=== PATIENT | male | born 1995 | race Caucasian/White ===

== ENCOUNTER 2017-05-13 16:01 | Inpatient (IN) | payer OTHER ==
--- NOTE | ~2017-05-13 | PN ---
Unit #: [id number] #: [id number] Patient: BOOM LAZARO [id number] [facility] [address] [place] [address] [id number] I MR#: [id number] NAME: BOOM LAZARO. ROOM: P121 Age: 22 Sex: M Admission Date: 05/13/2017 : 1995 Attending Physician: Cj Manriquez M.D. Admitting Physician: Cj Manriquez M.D. Primary Care Physician: Anita Brunson PROGRESS NOTES DATE OF SERVICE: 05/19/2017 SUBJECTIVE Mr. Parsons is a 22-year-old white male with mood disorder, who was seen today and chart was reviewed and case was discussed with the staff. He has been anxious, withdrawn, and rather seclusive to himself. Meanwhile, he has been cooperative with treatment recommendations and has been taking the medications and tolerating them fairly well with no reported side effects. MENTAL STATUS EXAMINATION Young white male who was casually dressed with fair personal hygiene, appears to be in no acute distress or discomfort. He was awake and alert on interaction with intact orientation. His mood was anxious with a congruent affect. He denies any suicidal or homicidal ideation. His insight and judgment remain slightly impaired. TREATMENT PLAN 1. We will continue on his current treatment protocol. We will monitor his response and make further adjustments as needed. 2. We will continue to follow up. Dictated by... Anita Allen/mohit TD: 05/20/2017 02:02 JOB #: [id number] EDIE PROGRESS NOTES Page 1 of 1 X Cj Manriquez MD X PROGRESS NOTE
--- NOTE | ~2017-05-13 | PN ---
Unit #: [id number] #: [id number] Patient: BOOM MACKEY [id number] [facility] [address] [place] [address] [id number] I MR#: [id number] NAME: BOOM MACKEY. ROOM: P121 Age: 22 Sex: M Admission Date: 05/13/2017 : 1995 Attending Physician: Cj Manriquez M.D. Admitting Physician: Cj Manriquez M.D. Primary Care Physician: Anita Brunson PROGRESS NOTES DATE 05/18/2017 DISCUSSION Mr. Mackey is a 22-year-old, white male who was seen today and chart was reviewed and case was discussed with the staff. He has been anxious, withdrawn and rather seclusive to himself. Meanwhile, he has been cooperative with treatment recommendations. He has been taking medications and tolerating them fairly well with no reported side effects. MENTAL STATUS EXAM Young white male who was casually dressed with fair personal hygiene, appears to be in no acute distress or discomfort. He was awake and alert on interaction with intact orientation. His mood was anxious with congruent affect. His speech was slow and goal directed. He denies any suicidal or homicidal ideation. Also, denies any auditory or visual hallucinations. His insight and judgement remains slightly impaired. TREATMENT PLAN 1. We will continue him on his current medications and treatment protocol. We will monitor his response to the medication and make further adjustments as needed. 2. We will continue to follow up. Dictated by... Anita Allen/avtar TD: 05/19/2017 04:12 JOB #: [id number] Unit #: [id number] #: [id number] Patient: BOOM MACKEY PROGRESS NOTES Page 1 of 1 X Cj Manriquez MD PROGRESS NOTE
--- NOTE | ~2017-05-13 | PN ---
Unit #: [id number] #: [id number] Patient: BOOM MACKEY [id number] [facility] [address] [place] [address] [id number] I MR#: [id number] NAME: BOOM MACKEY. ROOM: P121 Age: 22 Sex: M Admission Date: 05/13/2017 : 1995 Attending Physician: Cj Manriquez M.D. Admitting Physician: Cj Manriquez M.D. Primary Care Physician: Anita Brunson PROGRESS NOTES DATE 05/16/2017 DISCUSSION Mr. Mackey is a 22-year-old, white male who was seen today and chart was reviewed and case was discussed with the staff. He has been anxious, withdrawn and rather seclusive to himself. Meanwhile, he has been cooperative with the treatment recommendations. He has been taking the medication and tolerating them fairly well with no reported side effects. MENTAL STATUS EXAM Young white male who was casually dressed with fair personal hygiene, appears to be in no acute distress or discomfort. He was awake and alert on interaction with intact orientation. His mood was anxious with congruent affect. He denies any suicidal or homicidal ideation. His insight and judgement remains slightly impaired. TREATMENT PLAN 1. We will continue him on his current medications and treatment protocol. We will monitor his response and make further adjustments as needed. 2. We will continue to follow up. Dictated by... Anita Allen/avtar TD: 05/17/2017 03:05 JOB #: [id number] Unit #: [id number] #: [id number] Patient: BOOM MACKEY PROGRESS NOTES Page 1 of 1 X Cj Manriquez MD X PROGRESS NOTE
--- NOTE | ~2017-05-13 | DS ---
Unit #: [id number] #: [id number] [facility] [id number] [facility] [address] [place] [address] [id number] I MR#: [id number] NAME: BOOM MACKEY. ROOM: [facility] Age: 22 Sex: M Admission Date: 05/13/2017 : 1995 Discharge Date: 05/21/2017 Attending Physician: Cj Manriquez M.D. Primary Care Physician: Mya Mcmahon M.D. DISCHARGE SUMMARY IDENTIFYING DATA Mr. Mackey is a 22-year-old white male with history mood disorder, who was self referred to the hospital. DISCHARGE DIAGNOSES Psychiatric: Bipolar disorder, most recent episode depressed, recurrent, moderate, without psychotic features. Medical: None. Stressors: Moderate psychosocial stressors. HISTORY OF PRESENT ILLNESS Please see initial psychiatric evaluation for details. PAST PSYCHIATRIC HISTORY Please see initial psychiatric evaluation for details. PAST MEDICAL HISTORY Please see initial psychiatric evaluation for details. HOSPITAL COURSE The patient was admitted to the adult psychiatric unit at [facility] and was oriented to the hospital environment. Routine p.r.n. medications were initiated and he was started back on his home medications and medications were adjusted and was closely monitored. He was taking the medications regularly and was tolerating them fairly well and was able to show a decent therapeutic response with improvement in depression and anxiety and as such, it was decided that he will be kept on him current medications and will be discharged home and will continue treatment on an outpatient basis. DISCHARGE CONDITION Stable. PROGNOSIS Fair. Dictated by... Anita Allen/mohit TD: 06/24/2017 07:15 Unit #: [id number] #: [id number] Patient: BOOM MACKEY JOB #: [id number] DISCHARGE SUMMARY Page 1 of 1 X Cj Manriquez MD X DISCHARGE SUMMARY
--- NOTE | ~2017-05-13 | PN ---
Unit #: [id number] #: [id number] Patient: BOOM MACKEY [id number] [facility] [address] [place] [address] [id number] I MR#: [id number] NAME: BOOM MACKEY. ROOM: P121 Age: 22 Sex: M Admission Date: 05/13/2017 : 1995 Attending Physician: Cj Manriquez M.D. Admitting Physician: Cj Manriquez M.D. Primary Care Physician: Anita Brunson PROGRESS NOTES DATE 05/20/2017 DISCUSSION Mr. Mackey is a 22-year-old white male who was seen today and chart was reviewed and case was discussed with the staff. He has been anxious, withdrawn and rather seclusive to himself. Meanwhile, he has been cooperative with treatment recommendations and has been taking medications and tolerating them fairly well with no reported side effects. MENTAL STATUS EXAMINATION Young white male who was casually dressed with fair personal hygiene and appears to be in no acute distress or discomfort. He was awake and alert on interaction with intact orientation. His mood was anxious with congruent affect. His speech is slow and goal-directed. He denies any suicidal or homicidal ideation. His insight and judgement remains slightly impaired. TREATMENT PLAN 1. Will continue on his current medications and treatment protocol. Will monitor his response and make further adjustments as needed. 2. Will continue to follow up. Dictated by... Anita Allen/michael TD: 05/20/2017 17:17 JOB #: [id number] Unit #: [id number] #: [id number] Patient: BOOM MACKEY PROGRESS NOTES Page 1 of 1 X Cj Manriquez MD X PROGRESS NOTE
--- NOTE | ~2017-05-13 | PN ---
Unit #: [id number] #: [id number] Patient: BOOM LAZARO [id number] [facility] [address] [place] [address] [id number] MR#: [id number] NAME: BOOM LAZARO. ROOM: P121 Age: 22 Sex: M Admission Date: 05/13/2017 : 1995 Attending Physician: Cj Manriquez M.D. Admitting Physician: Cj Manriquez M.D. Primary Care Physician: Mya Mcmahon M.D. PEANADJA PROGRESS NOTES DATE OF SERVICE 05/17/2017 DISCUSSION Ms. Lazaro is a 22-year-old white male who was seen today. Chart was reviewed and case was discussed with the staff. He has been anxious, withdrawn, depressed, and rather seclusive to himself. Meanwhile, he has been cooperative with treatment recommendations and has been taking the medications and tolerating them fairly well with no reported side effects. MENTAL STATUS EXAMINATION Young white male who is casually dressed with fair personal hygiene, appears to be in no acute distress or discomfort. He was awake and alert on interaction with intact orientation. His mood is anxious with congruent affect. He denies any suicidal or homicidal ideations. His insight and judgment remain slightly impaired. TREATMENT PLAN 1. We will continue him on his current medications and treatment protocol. We will monitor his response to the medications and make further adjustments as needed. 2. We will continue to follow up. Dictated by... jC Manriquez M.D. IAA/bzg TD: 05/18/2017 10:18 JOB #: [id number] PEANADJA PROGRESS NOTES Page 1 of 1 X Cj Manriquez MD X PROGRESS NOTE
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
--- NOTE | ~2017-05-13 | PN ---
Unit #: [id number] #: [id number] Patient: BOOM MACKEY [id number] [facility] [address] [place] [address] [id number] I MR#: [id number] NAME: BOOM MACKEY. ROOM: P121 Age: 22 Sex: M Admission Date: 05/13/2017 : 1995 Attending Physician: Cj Manriquez M.D. Admitting Physician: Cj Manriquez M.D. Primary Care Physician: Anita Brunson PROGRESS NOTES DATE May 14, 2017 DISCUSSION Mr. Mackey is a 22-year-old white male, with mood disorder, who was seen today and chart was reviewed and the case was discussed with the staff. He was seen to be anxious, withdrawn, depressed, and rather seclusive to himself with blunted affect and minimal interaction expressing significant depressive symptoms. Meanwhile, he has been taking the medications and tolerating them fairly well with no reported side effects. MENTAL STATUS EXAMINATION Young white male, who was casually dressed with fair personal hygiene and appears to be in no acute distress or discomfort. He was awake and alert on interaction with intact orientation. His mood is anxious with a congruent affect. His speech is slow and goal-directed. He denies any suicidal or homicidal ideations. His insight and judgment remain slightly impaired. TREATMENT PLAN 1. We will continue him on his current medications and we will recommend initiating antidepressant therapy. 2. We will continue to followup. Dictated by... Anita Allen/reggie TD: 05/14/2017 09:55 JOB #: [id number] Unit #: [id number] #: [id number] Patient: BOOM MACKEY PROGRESS NOTES Page 1 of 1 X Cj Manriquez MD PROGRESS NOTE
--- NOTE | ~2017-05-13 | HP ---
Unit #: [id number] #: [id number] Patient: BOOM LAZARO [id number] [place] [address] [id number] I MR#: [id number] NAME: BOOM LAZARO. ROOM: P121 Age: 22 Sex: M Admission Date: 05/13/2017 : 1995 Attending Physician: Cj Manriquez M.D. Admitting Physician: Cj Manriquez M.D. Primary Care Physician: Mya Mcmahon M.D. HISTORY AND PHYSICAL HISTORY OF PRESENT ILLNESS Boom is a 22 year old admitted to [address] [place] [address] with depression verbalizing wanting to hurt himself. PAST MEDICAL HISTORY Nothing significant. PAST SURGICAL HISTORY Nothing reported. ALLERGIES No known drug allergies. SOCIAL HISTORY Smokes 1 pack per day. Drinks alcohol rarely. Admits to using marijuana frequently. FAMILY HISTORY Medically noncontributory. REVIEW OF SYSTEMS CONSTITUTIONAL: No fever or chills. HEENT: Denies any sore throat, ear pain or runny nose. CARDIOVASCULAR: Denies chest pain, irregular heart rhythm or palpitations. CHEST: Denies shortness of breath or cough. No hemoptysis. GASTROINTESTINAL: Denies nausea, vomiting, diarrhea or chronic constipation. ENDOCRINE: Denies history of increased thirst or urination. No recent significant weight loss or gain. GENITOURINARY: Denies dysuria, frequency, or hematuria. SKIN: Denies any rashes. HEMATOLOGIC: Denies history of increased bleeding or bruising. MUSCULOSKELETAL: Denies any hot, swollen joints. No generalized muscle pain. NEUROLOGIC: Denies problems with vision or speech. No frequent, severe headaches. No numbness, tingling or weakness in any extremities. Denies loss of bladder or bowel control. CURRENT MEDICATIONS 1. Celexa 20 mg daily. 2. Desyrel 100 mg q.h.s. p.r.n. 3. Milk of Magnesia p.r.n. 4. Maalox p.r.n. Unit #: [id number] #: [id number] Patient: BOOM LAZARO 5. Tylenol p.r.n. 6. Nicotine patch 14 mg daily. PHYSICAL EXAMINATION GENERAL: Alert, well-nourished, in no apparent distress. VITAL SIGNS: Blood pressure 124/66, heart rate 80, respirations 16, temperature 98.6. WEIGHT: 190. HEIGHT: 5 feet 11 inches. SKIN: Warm and dry without rash or lesion. HEENT: Normocephalic. TMs not viewed. Oral and nasal passages clear. Conjunctivae clear. PERRLA. EOMs intact. NECK: Supple without lymphadenopathy or thyromegaly. HEART: Regular rate and rhythm without murmur. LUNGS: Clear. ABDOMEN: Soft, nontender. : Not done. EXTREMITIES: No evidence of cyanosis, clubbing or edema. Moves all without focal deficit. NEUROLOGICAL: Grossly within normal limits. Cranial Nerves: II: Visual banuelos are intact. III, IV AND : Extraocular movements are intact. Pupils are equal, round and reactive to light. V: Facial sensation is grossly normal. VII: Facial movements and expression are normal. VIII: Auditory acuity grossly intact. IX, X: Uvula is midline. Phonation is normal. XI: Patient shrugs shoulders and turns head normally. XII: Tongue protrudes in the midline. Sensory and Motor Function: Sensory and motor sensation is grossly normal. Motor: moves all extremities well. Coordination: Gait is normal. Deep Tendon Reflexes: Intact. IMPRESSION Psychiatric admission. RECOMMENDATIONS PSYCHIATRIC: Per psychiatrist. MEDICAL: See no contraindication to participate in facility's activities. MEDICAL PROGNOSIS Good. MEDICAL CONDITION Stable. Dictated by... Estrella Grider P.A.-C. for Aniat Jeffers/michael TD: 05/14/2017 19:43 JOB #: [id number] Unit #: [id number] #: [id number] Patient: BOOM LAZARO HISTORY AND PHYSICAL Page 1 of 1 X Estrella Grider HISTORY AND PHYSICAL
--- NOTE | ~2017-05-13 | PN ---
Unit #: [id number] #: [id number] Patient: BOOM MACKEY [id number] [facility] [address] [place] [address] [id number] MR#: [id number] NAME: BOOM MACKEY. ROOM: P121 Age: 22 Sex: M Admission Date: 05/13/2017 : 1995 Attending Physician: Cj Manriquez M.D. Admitting Physician: Cj Manriquez M.D. Primary Care Physician: Anita Brunson PROGRESS NOTES DATE May 15, 2017 DISCUSSION Mr. Mackey is a 22-year-old white male, who was seen today and chart was reviewed and the case was discussed with the staff. He has been anxious, withdrawn, seclusive to himself, reports persistent depressive symptoms and he could not sleep all night long last night, and that he is having real bad headache as of this morning. Meanwhile, he has been taking the medications and tolerating them fairly well with no reported side effects. MENTAL STATUS EXAMINATION Young white male, who was casually dressed with fair personal hygiene and appears to be in no acute distress or discomfort. He was awake and alert with intact orientation. His mood is anxious with a congruent affect. He denies any suicidal or homicidal ideations. His insight and judgment remain slightly impaired. TREATMENT PLAN 1. We will continue him on his current medications and treatment protocol, and will monitor his response to the medications, and make further adjustments as needed. 2. We will continue to followup. Dictated by... Anita Allen/reggie TD: 05/15/2017 10:13 JOB #: [id number] Unit #: [id number] #: [id number] Patient: BOOM MACKEY PROGRESS NOTES Page 1 of 1 X Cj Manriquez MD PROGRESS NOTE
[~2017-05-13 16:01] MED LIST: ALBUTEROL17 GM INH; BACTRIM DS TABL1 TA1 PO; DOXYCYCLINE150 MG PO; IBUPROFEN800 MG PO; KEFLEX PO; LORATADINE PO; NEXIUM PO; PREDNISONE PO; PRILOSEC PO; PRILOSEC20 M1 PO; QVAR7.3 GM INH; SINGULAIR PO; TRILEPTAL PO; ZANTAC PO; ZITHROMAX1 G/PKT PO; ZYRTEC PO; ZYRTEC1 MG/1 ML PO
[2017-05-14 09:56] LABS: URINE APPEARANCE CLEAR; URINE BILIRUBIN NEG (NEG); URINE BLOOD NEG (NEG); URINE COLOR YELLOW; URINE GLUCOSE NEG (NEG); URINE KETONE 2+ (NEG); URINE LEUKOCYTE ESTERASE NEG (NEG); URINE NITRATE NEG (NEG); URINE PH 6.5 (5-8); URINE PROTEIN NEG (NEG)
[2017-05-14 09:58] LABS: BASOPHIL% 0.7 % (0-2.5); EOSINOPHIL# 0.4 X10e3 (0-0.7); EOSINOPHIL% 6.6 % (0.0-7.0); HEMATOCRIT 43.7 % (38.0-50.0); HEMOGLOBIN 14.8 gm/dL (13.0-16.0); LYMPHOCYTE# 2.6 X10e3 (1.0-3.5); LYMPHOCYTE% 39.2 % (17.0-45.0); MEAN CELL VOLUME 90.5 FL (83-96); MEAN CORPUSCULAR HEMOGLOBIN 30.7 PG (28-34); MEAN CORPUSCULAR HGB CONC 33.9 g/dL (30-36); MONOCYTE# 0.7 X10e3 (0-1.0); MONOCYTE% 10.7 % (3.0-12.0); NEUTROPHIL# 2.9 X10e3 (1.5-7.1); NEUTROPHIL% 42.8 % (40-75); PLATELET COUNT 215 X10e3 (140-420); RED BLOOD COUNT 4.84 X10e (3.90-5.60); RED CELL DISTRIBUTION WIDTH 13.4 % (11.0-15.5); WHITE BLOOD COUNT 6.7 X10e3 (4.0-10.5)
[2017-05-14 10:05] LABS: DIFF IND NO
[2017-05-14 10:11] LABS: ALBUMIN SERUM 4.6 g/dL (3.5-5.0); BILIRUBIN,TOTAL 1.3 mg/dL (0.2-2.0); CALCIUM SERUM 9.9 mg/dL (8.4-10.2); GLOM FILT RATE Estimated 106.4 mL/min (>60); POTASSIUM 4.6 mmol/L (3.5-5.1); PROTEIN TOTAL SERUM 7.6 g/dL (6.0-8.3)
[2017-05-14 12:48] LABS: AMPHETAMINE NEG (NEG); BARBITURATES NEG (NEG); BENZODIAZEPINES NEG (NEG); COCAINE NEG (NEG); MARIJUANA POS (NEG); OPIATES NEG (NEG); TRICYCLIC ANTIDEPRESSANTS NEG (NEG); U METHADONE NEG (NEG)
== END 2017-05-21 09:45 | disposition home or self-care (01) | DRG 885 ==
LOC: P1S 17:53
PROVIDERS: Psychiatry & Neurology Psychiatry
PROC: HZ2ZZZZ Detoxification Services for Substance Abuse Treatment (ICD-10-PCS; principal; 2017-05-13)
DX: F33.1 Major depressive disorder, recurrent, moderate (principal); F12.20 Cannabis dependence, uncomplicated; F17.210 Nicotine dependence, cigarettes, uncomplicated
CPT/HCPCS: 80053; 80307; 81003; 85025